=== PATIENT | male | born 1935 | race Caucasian/White ===

== ENCOUNTER 2019-03-12 08:28 | Inpatient (IN) | payer OTHER ==
[~2019-03-12] VITALS: Ht 177.8 cm; Wt 65.4 kg
[~2019-03-12 08:28] MED LIST: BACTROBAN2% TP; CLINDAMYCIN HC300 MG PO; ECO81 PO; HIB240 TP; LAC PO; LEVAQUIN750 MG PO; MEDDP PO; METOPROLOL TART25 M1 PO; PREDNISONE20 MG PO
[2019-03-12 08:44] VITALS: Ht 177.8 cm; Wt 65.4 kg
[2019-03-12 09:23] LABS: BASOPHIL % 0.2 % (0-2); RED CELL DISTRIBUTION WIDTH 13.9 % (11.5-14.5)
[2019-03-12 09:40] LABS: CARBON DIOXIDE 27.8 mmol/L (21-32); CHLORIDE SERUM 105 mmol/L (98-107); CREATININE SERUM 1.1 mg/dL (0.7-1.3); GLUCOSE SERUM 97 mg/dL (74-106); SODIUM SERUM 144 mmol/L (136-145)
[2019-03-12 09:51] LABS: ALBUMIN 3.6 g/dL (3.4-5.0); ALKALINE PHOSPHATASE 65 U/L (46-116); ALT/SGPT 17 U/L (16-63); AST/SGOT 10 U/L (15-37); TOTAL PROTEIN, SERUM 8.1 g/dL (6.4-8.2)
[2019-03-12 10:26] LABS: PLATELET COUNT 425 x10^3mcL (130-400)
[2019-03-12 12:28] VITALS: BP 154/95
[2019-03-12 13:00] VITALS: BP 154/95
[2019-03-12 17:15] VITALS: BP 132/81
[2019-03-12 20:00] VITALS: BP 116/68
[2019-03-13 06:09] VITALS: BP 141/78
[2019-03-13 06:53] LABS: BASOPHIL % 0.5 % (0-2); PLATELET COUNT 367 x10^3mcL (130-400); RED CELL DISTRIBUTION WIDTH 14.1 % (11.5-14.5)
[2019-03-13 07:05] LABS: CALCIUM 9.4 mg/dL (8.5-10.1); CARBON DIOXIDE 26.7 mmol/L (21-32); CHLORIDE SERUM 107 mmol/L (98-107); CREATININE SERUM 0.9 mg/dL (0.7-1.3); GLUCOSE SERUM 89 mg/dL (74-106); POTASSIUM SERUM 4.3 mmol/L (3.5-5.1); SODIUM SERUM 143 mmol/L (136-145)
[2019-03-13 08:36] VITALS: BP 134/81
[2019-03-13 13:09] VITALS: BP 139/76
[2019-03-13 16:16] VITALS: BP 123/76
[2019-03-13 21:03] VITALS: BP 141/90
[2019-03-14 05:45] VITALS: BP 147/86
[2019-03-14 09:21] VITALS: BP 153/81
[2019-03-14 12:57] VITALS: BP 108/70
[2019-03-14 16:45] VITALS: BP 139/87
== END 2019-03-14 19:14 | disposition left against medical advice (07) | DRG 603 ==
LOC: ED 08:28 → DU 10:33 → MU 03-14 13:00
PROVIDERS: Emergency Medicine; ADMIT Internal Medicine
DX: L03.116 Cellulitis of left lower limb (principal); L03.115 Cellulitis of right lower limb; I73.9 Peripheral vascular disease, unspecified; I87.2 Venous insufficiency (chronic) (peripheral); I48.91 Unspecified atrial fibrillation; I10 Essential (primary) hypertension; J44.9 Chronic obstructive pulmonary disease, unspecified; Z68.20 Body mass index [BMI] 20.0-20.9, adult; Z88.0 Allergy status to penicillin; Z80.1 Family history of malignant neoplasm of trachea, bronchus and lung; Z84.2 Family history of other diseases of the genitourinary system; Z79.82 Long term (current) use of aspirin; B35.1 Tinea unguium
CPT/HCPCS: G0378; J0696; J1644; J3370; J3490; J7030; J7040; J7050; Q0092